=== PATIENT | female | born 1940 | race Caucasian/White ===

== ENCOUNTER 2020-10-25 07:03 | Day surgery (SDC) | payer OTHER ==
[~2020-10-25] VITALS: Ht 177.8 cm; Wt 75.7 kg
[~2020-10-25 07:03] MED LIST: B COMPLEX1 EACH PO; COREG25 M1 PO; DICLOFENAC SODI75 MG PO; DOXYCYCLINE HY100 M3 PO; ELIQUIS2.5 MG PO; FUROSEMIDE 40 M40 M1 PO; GABAPENTIN600 M1 PO; GLIPIZIDE ER5 MG PO; INVOKANA100 MG PO; METHENAMINE HIPP1 G1 PO; PROZAC20 MG PO; VENTOLIN HFA 1818 GM INH; VITAMIN C500 M1 PO; VITAMIN D325 MC3 PO
[2020-10-25 08:10] VITALS: BP 123/67
--- NOTE | 2020-10-26 12:29 | EKG ---
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 : 1940 Requested By: Eddie Castrejon Order Number: [id number] MD: Garland Gallegos Measurements Intervals [place] Rate: 71 P: 51 [place]: 160 QRS: -7 QRSD: 99 T: 52 QT: 381 QTc: 414 Interpretive Statements Sinus rhythm Low voltage, precordial leads Probable anteroseptal infarct, old No previous ECG available for comparison Electronically Signed On 10-26-2020 12:29:16 CDT by Garland Gallegos [email or web address] <ELECTRONICALLY SIGNED> By: Garland Gallegos MD, [facility] 10/26/20 1229 0848 7 Garland Gallegos MD, FACC /EPI
--- NOTE | 2020-10-29 06:14 | O ---
[facility] [place] [address] OPERATIVE REPORT Name: EVETTE GARCIA Room #: DEP [facility].#: [id number] Admission: 10/25/20 Attend Phys: Eddie Castrejon MD Discharge: 10/25/20 Date of : 40 Report #: [id number] THIS REPORT FOR: cc: FAM - Family physician unknown FAM - Family physician unknown Eddie Castrejon MD ~ DATE OF SERVICE: 10/25/2020 PREOPERATIVE DIAGNOSES: Recurrent right lower lid ectropion, right upper lid entropion, chronic conjunctivitis, chronic keratopathy, left lateral canthal dystopia. POSTOPERATIVE DIAGNOSES: Recurrent right lower lid ectropion, right upper lid entropion, chronic conjunctivitis, chronic keratopathy, left lateral canthal dystopia. PROCEDURES: 1. Left lower lid ectropion repair via myocutaneous flap. 2. Left upper lid resection with repair of entropion by myocutaneous advancement flap. 3. Left lateral canthoplasty. SURGEON: Eddie Castrejon MD PET WALKER: None. ANESTHESIA: MAC. COMPLICATIONS: None. 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 She has previously undergone eyelid surgery, which she manually took down with her fingers and by her nocturnal posturing. She presents today for repeat surgery in order to attempt to establish better eyelid anatomy with the understanding that she needs to leave the wound alone afterwards or we will be right back in the same situation again. A detailed informed consent was obtained to include, but not limited to the potential risk for loss of vision, bleeding, infection, failure to improve the problem, and the potential need for further surgery or treatment. DESCRIPTION OF PROCEDURE: The patient was taken to the operating room where 2% Xylocaine with epinephrine mixed with equal parts 0.75% Marcaine with Wydase was administered transcutaneously and transconjunctivally to the left lower lid, the left lateral canthus, the left upper lid, the left cheek and the left [address] [address] OPERATIVE REPORT Name: EVETTE GARCIA Dimitrios Room #: DEP [facility].#: [id number] Admission: 10/25/20 Attend Phys: Eddie Castrejon MD Discharge: 10/25/20 Date of : 40 Report #: [id number] infratemporal fossa. The patient was subsequently prepped and draped in the usual sterile fashion. A James clamp was then used to clamp the left lateral canthus following which a sharp canthotomy and cantholysis was performed. Hemostasis was then re-achieved. A tarsal strip was then prepared laterally removing the lash bearing portion of the redundant lid margin and the redundant tarsal plate. 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 This was all released as the myocutaneous flap was developed inferomedially. Hemostasis having been achieved, the flap was then advanced as a unit and secured to the internal portion of the lateral orbital tubercle with interrupted 5-0 Prolene sutures. The left upper lid was then detached from the lateral canthus with a Sevier needle. The dissection was carried out superiorly and the lid advanced inferolaterally. The redundant upper lid was then amputated with a Freya scissor. The upper lid was then advanced as a myocutaneous unit and reattached to the periosteum laterally with interrupted 5-0 Prolene sutures. This left the lid taut, but not too tight. A Y to V canthoplasty was then outlined laterally. The incision was made with a Freya scissor and hemostasis was re-achieved. The flap was then advanced and the canthoplasty closed with interrupted 6-0 plain gut sutures. The wounds were then cleaned and dressed with bacitracin ophthalmic ointment. The patient was subsequently transported to the recovery area having tolerated the procedure well with no anesthetic or operative complications being noted. <ELECTRONICALLY SIGNED> By: Eddie Castrejon MD 10/29/20 0614 0925 0934 Eddie Castrejon MD /nt
== END 2020-10-25 11:15 | disposition home or self-care (01) ==
LOC: TBA 07:03 → OR 07:03
PROVIDERS: ATTEND Ophthalmology
DX: H02.105 Unspecified ectropion of left lower eyelid (principal); H02.004 Unspecified entropion of left upper eyelid; H10.402 Unspecified chronic conjunctivitis, left eye; H18.9 Unspecified disorder of cornea; H02.89 Other specified disorders of eyelid; I10 Essential (primary) hypertension; J43.9 Emphysema, unspecified; E11.9 Type 2 diabetes mellitus without complications; Z98.890 Other specified postprocedural states; Z79.899 Other long term (current) drug therapy; Z87.891 Personal history of nicotine dependence; Z20.822 Contact with and (suspected) exposure to COVID-19; Z98.41 Cataract extraction status, right eye; Z98.42 Cataract extraction status, left eye; Z88.0 Allergy status to penicillin; Z88.2 Allergy status to sulfonamides; Z79.01 Long term (current) use of anticoagulants
CPT/HCPCS: 50010; 50101; 50386; 50398; 51636; 56527; 56531; 62110; 62850; 70005